=== PATIENT | female | born 1990 | race Caucasian/White ===

== ENCOUNTER 2018-02-21 09:21 | Observation (INO) | payer MEDICAID, SELFPAY ==
[2018-02-21 09:23] VITALS: BP 132/68; PULSE 90; RESP 16; TEMP 37.4; O2SAT 97
--- NOTE | 2018-02-21 09:46 | W.ED.GENAD ---
Discharge Plan Disposition Patient Disposition: [facility] INPATIENT Condition: Fair Discharge Details Chief Complaint: Abd Prob Clinical Impression: Enteritis Reason For Visit: ACUTE GASTROENTERITIS/AD PAIN/FEVER Admit Date/Time: 02/21/18 14:33 Admit Provider: Earnest Vela Attending Provider: Earnest Vela Primary Care Provider: Reshma Hauser ED Provider: Sae Kahn Medical Decision Making MDM Narrative Medical decision making narrative: 27-year-old female presents with abdominal pain, vomiting, which she states is intermittent vaginal spotting. She is afebrile, well-appearing, but in some distress with tenderness her abdomen. Differential diagnosis includes peritonitis, bowel obstruction, infection. On gynecologic exam she has mucus brown discharge, proximal vaginal canal erosions, left greater than right adnexal tenderness Patient had IV access established, peripheral laboratory testing, urinalysis, CT imaging. Vaginal sathish are negative for Lorena, Gardnerella, trichomonas. Patient has a white count of 9, unremarkable CBC, chemistries that were reassuring and a unremarkable lipase of 51. CT images reveal dilated thickened loops of bowel with mesenteric stranding. There is no pneumatosis or free air, the appendix appears normal. Consistent with a severe enteritis. In the emergency department the patient spiked a temperature to 38.1. Therefore, added blood cultures and lactic acid level. I did discuss the case with Dr. Wise in consultation. Most consistent with enteritis. Pt to be admitted to medicine service, Dr Vela. HPI - General Adult General Mode of arrival: ambulatory. Date/Time Provider Initiated Documentation: 02/21/18 09:33. Limitations to Documentation: no limitations. Information obtained by: patient. History of Present Illness 27 year old F presents to the emergency department with the chief complaint of Multiple complaints, described as moderate, Quality is described as aching, and is localized to the abdomen. Patient abdomen and distal. Patient started experiencing this day(s) and it has been intermittent. No relieving factors improve symptom(s), Eating worsens symptoms . Patient notes no other symptoms.. Patient did receive the following treatments prior to arrival, none HPI Narrative: Numerous complaints: This 27-year-old female who complains of abdominal pain. She states that she had heavy menstrual period for 5-6 days that finished 5 days ago. During that time she had numerous pads per day of menstrual flow. She said she had crampy lower abdominal pain associated with this. She now complains of the gradual onset of 4 days of mid upper abdominal pain that sharp, constant, worse with eating and radiates to the pelvis. Associated with nausea and vomiting. She has not had fever or chills. She states that she has otherwise been well. Related Data Home Medications Medication Instructions Recorded Confirmed Unknown [No Known Home Meds] 02/21/18 02/21/18 Allergies Allergy/AdvReac Type Severity Reaction Status Date / Time No Known Allergies Allergy Unverified 02/21/18 09:30 General Stated Complaint: Abd Prob KARON: 3 Review of Systems Review of Systems 8 systems reviewed and otherwise neg PFSH Social History Smoking/Tobacco Use Status: Current every day Exam Narrative Exam Narrative: GEN: awake, alert, oriented 3. Pleasant, well groomed, interactive. HEAD: Normocephalic, atraumatic ENT: Mucous membranes moist, oropharynx unremarkable, External ear exam unremarkable EYES: PERRL, EOMI NECK: Full ROM, no DANIEL, no menigismus CHEST/RESP: Nontender, clear to auscultation bilateral, no wheeze/rhonchi/rales CARDIOVASCULAR: RRR, no murmur, rub daniel. 2+ Rad pulse bilateral ABDOMEN: Soft, diffusely tender, most so with deep palpation, mild rebound present, no mass. +Bowel sounds. PATIENT CARE SPECIALIST: Patient has brown mucus discharge with erosions of the proximal vaginal vault on the left side. She is tender on bimanual exam left greater than right adnexa EXT: Full ROM, no edema, no rash Neuro: Grossly normal neurologic exam, conversant, interactive. Psych: Speech fluent, thoughts congruent, affect normal Course Vital Signs Temperature 37.4 C 02/21/18 09:23 Pulse 90 02/21/18 09:23 Respiratory Rate 16 02/21/18 09:23 Blood Pressure 132/68 02/21/18 09:23 Pulse Oximetry 97 02/21/18 09:23 Temperature 37.4 C 02/21/18 09:23 Pulse 90 02/21/18 09:23 Respiratory Rate 16 02/21/18 09:23 Blood Pressure 132/68 02/21/18 09:23 Pulse Oximetry 97 02/21/18 09:23
--- NOTE | 2018-02-21 09:50 | ED.GENADUL_ITS ---
Discharge Plan Disposition Patient Disposition: [facility] INPATIENT Condition: Fair Discharge Details Chief Complaint: Abd Prob Clinical Impression: Enteritis Reason For Visit: ACUTE GASTROENTERITIS/AD PAIN/FEVER Admit Date/Time: 02/21/18 14:33 Admit Provider: Earnest Vela Attending Provider: Earnest Vela Primary Care Provider: Reshma Hauser ED Provider: Sae Kahn Medical Decision Making MDM Narrative Medical decision making narrative: 27-year-old female presents with abdominal pain, vomiting, which she states is intermittent vaginal spotting. She is afebrile, well-appearing, but in some distress with tenderness her abdomen. Differential diagnosis includes peritonitis, bowel obstruction, infection. On gynecologic exam she has mucus brown discharge, proximal vaginal canal erosions, left greater than right adnexal tenderness Patient had IV access established, peripheral laboratory testing, urinalysis, CT imaging. Vaginal sathish are negative for Lorena, Gardnerella, trichomonas. Patient has a white count of 9, unremarkable CBC, chemistries that were reassuring and a unremarkable lipase of 51. CT images reveal dilated thickened loops of bowel with mesenteric stranding. There is no pneumatosis or free air, the appendix appears normal. Consistent with a severe enteritis. In the emergency department the patient spiked a temperature to 38.1. Therefore, added blood cultures and lactic acid level. I did discuss the case with Dr. Wise in consultation. Most consistent with enteritis. Pt to be admitted to medicine service, Dr Vela. HPI - General Adult General Mode of arrival: ambulatory . Date/Time Provider Initiated Documentation: 02/21/18 09:33 . Limitations to Documentation: no limitations . Information obtained by: patient . History of Present Illness 27 year old F presents to the emergency department with the chief complaint of Multiple complaints, described as moderate, Quality is described as aching, and is localized to the abdomen. Patient abdomen and distal. Patient started experiencing this day(s) and it has been intermittent. No relieving factors improve symptom(s), Eating worsens symptoms . Patient notes no other symptoms.. Patient did receive the following treatments prior to arrival, none HPI Narrative: Numerous complaints: This 27-year-old female who complains of abdominal pain. She states that she had heavy menstrual period for 5-6 days that finished 5 days ago. During that time she had numerous pads per day of menstrual flow. She said she had crampy lower abdominal pain associated with this. She now complains of the gradual onset of 4 days of mid upper abdominal pain that sharp, constant, worse with eating and radiates to the pelvis. Associated with nausea and vomiting. She has not had fever or chills. She states that she has otherwise been well. Related Data Home Medications Medication Instructions Recorded Confirmed Unknown [No Known Home Meds] 02/21/18 02/21/18 Allergies Allergy/AdvReac Type Severity Reaction Status Date / Time No Known Allergies Allergy Unverified 02/21/18 09:30 General Stated Complaint: Abd Prob KARON: 3 Review of Systems Review of Systems 8 systems reviewed and otherwise neg PFSH Social History Smoking/Tobacco Use Status: Current every day Exam Narrative Exam Narrative: GEN: awake, alert, oriented 3. Pleasant, well groomed, interactive. HEAD: Normocephalic, atraumatic ENT: Mucous membranes moist, oropharynx unremarkable, External ear exam unremarkable EYES: PERRL, EOMI NECK: Full ROM, no DANIEL, no menigismus CHEST/RESP: Nontender, clear to auscultation bilateral, no wheeze/rhonchi/rales CARDIOVASCULAR: RRR, no murmur, rub daniel. 2+ Rad pulse bilateral ABDOMEN: Soft, diffusely tender, most so with deep palpation, mild rebound present, no mass. +Bowel sounds. SIZING MACHINE TENDER: Patient has brown mucus discharge with erosions of the proximal vaginal vault on the left side. She is tender on bimanual exam left greater than right adnexa EXT: Full ROM, no edema, no rash Neuro: Grossly normal neurologic exam, conversant, interactive. Psych: Speech fluent, thoughts congruent, affect normal Course Vital Signs Temperature 37.4 C 02/21/18 09:23 Pulse 90 02/21/18 09:23 Respiratory Rate 16 02/21/18 09:23 Blood Pressure 132/68 02/21/18 09:23 Pulse Oximetry 97 02/21/18 09:23 Temperature 37.4 C 02/21/18 09:23 Pulse 90 02/21/18 09:23 Respiratory Rate 16 02/21/18 09:23 Blood Pressure 132/68 02/21/18 09:23 Pulse Oximetry 97 02/21/18 09:23
[2018-02-21] MEDS: Ondansetron 4 MG/2 ML VIAL IVP ×2 (10:05→22:05)
[2018-02-21 10:17] LABS: Abs Immature Grans 0.04 k/cumm (0.0-0.09); Absolute Basophil Count 0.01 k/cumm (0.0-0.2); Absolute Lymphocyte Count 1.68 k/cumm (1.2-3.4); Absolute Monocyte Count 0.93 k/cumm (0.11-0.7); Absolute Neutrophil Count 6.94 k/cumm (1.2-6.7); Basophils % 0.1; HCT 34.9 % (36.0-46.0); HGB 11.4 g/dL (12.0-15.5); Immature Grans % 0.4; Lymphocytes % 17.5; Mean Corp. HGB Concentration 32.7 g/dL (32.0-36.0); Mean Corpuscular Hemoglobin 25.4 pg (27.0-33.0); Mean Corpuscular Volume 77.7 fL (80-95); Monocytes % 9.7; Neutrophils % 72.3; Platelet Count 324 x1000/uL (130-400); RBC 4.49 m/cumm (4.00-5.20); RBC Distribution Width 14.3 % (11.7-14.6)
[2018-02-21 10:18] LABS: Bilirubin Small (Negative); Blood Moderate (Negative); Clarity Sl Cloudy; Glucose Negative (Negative); Ketones Trace mg/dL (Negative); Leukocyte Esterase Negative (Negative); Nitrite Negative (Negative); Specific Gravity 1.025 (1.005-1.025); pH 6.5 (5-8)
[2018-02-21] MEDS: Normal Saline 1,000 ML 1000 ML IV (10:18)
[2018-02-21 10:25] LABS: Bacteria Moderate HPF (Negative); C & S Indicated? No/Sq. Contamination; Casts Negative LPF (Negative); Crystals Negative HPF (Negative); Epithelial Cells Moderate HPF (Negative); Mucus Heavy (Negative); Other Cells Negative (Negative)
[2018-02-21 10:36] LABS: ALT 18 U/L (12-78); AST 10 U/L (15-37); Albumin 3.2 g/dL (3.4-5.0); Alkaline Phosphatase 67 U/L (46-116); Anion Gap 7.7 mmol/L (3-11); BUN 7 mg/dL (7-18); Bilirubin, Total 0.4 mg/dL (0.2-1.0); CO2 30.3 mmol/L (21.0-32.0); CREATININE 0.73 mg/dL (0.55-1.02); Calcium 8.5 mg/dL (8.5-10.1); Chloride 100 mmol/L (98-107); Glucose 102 mg/dL (70-100); Lipase 51 U/L (73-393); Potassium 3.7 mmol/L (3.5-5.1); Sodium 138 mmol/L (136-145); Total Protein 7.4 g/dL (6.4-8.2)
--- NOTE | 2018-02-21 12:43 | DI.CT_ITS ---
SYMPTOMS/DIAGNOSIS: ABDOMINAL PAIN CT OF THE ABDOMEN AND PELVIS: Comparison is made with October,. Images were performed from the lung bases through the ischial tuberosities after IV contrast. The patient received only a small amount of IV contrast due to IV failure. This limits evaluation of the bowel. The evaluation of the bowel is also limited due to lack of oral contrast. There is marked haziness of the mesentery. There is a small amount of fluid in the lower pelvis. There is bowel wall thickening and mild distention involving loops of bowel, mainly in the left side of the abdomen. More distal loops of small bowel, as well as colon, appear normal. The appendix appears normal. There is no discrete abscess. The uterus and ovaries are grossly normal. The bladder appears normal. The lung bases show mild respiratory motion and dependent changes. There is no free air. The liver, gallbladder, spleen, adrenals, pancreas and kidneys are unremarkable. IMPRESSION: Limited exam secondary to lack of adequate IV contrast. There are dilated loops of small bowel in the left side of the abdomen and haziness to the mesentery, which could indicate enteritis with peritonitis. There is no evidence of abscess or perforation.
[2018-02-21 12:50] VITALS: TEMP 38.1
[2018-02-21 14:06] LABS: Lactate-non-spesis 0.5 mmol/L (0.6-1.4)
[2018-02-21 16:16] VITALS: BP 132/68; PULSE 90; RESP 16; TEMP 38.1; O2SAT 97
[2018-02-21 16:20] LABS: *AMPHETAMINES SCREEN URINE Negative (Negative); *BARBITURATES SCREEN URINE Negative (Negative); *BENZODIAZEPINES SCREEN URINE Negative (Negative); Cannabinoids THC POSITIVE (Negative); Cocaine Screen,Urine POSITIVE (Negative); METHADONE URINE SCREEN POSITIVE (Negative); OPIATES URINE SCREEN Negative (Negative)
[2018-02-21 16:31] VITALS: BP 117/70; PULSE 67; RESP 18; TEMP 36.7; O2SAT 98
[2018-02-21 16:44] LABS: Tricyclic Antidepressants Negative (Negative)
[2018-02-21] MEDS: Normal Saline 1,000 ML 75 ML IV (16:44)
[2018-02-21] MEDS: Nicotine 14 MG/24 HR PATCH TD (16:50)
--- NOTE | 2018-02-21 18:54 | W.PM.HP.N ---
Date of service: 02/21/18 Time of Service: 18:55 Assessment and Plan (1) Gonorrhea: Current visit: Yes Status: Suspected Patient was treated for an acute gonorrhea infection October 2017. Patient states she has had the same partner for the last 16 months. She notes her partner was never treated for an acute gonorrhea infection. She notes she has had sexual intercourse with her partner since that time. Given the abnormal exam and her presentation with abdominal pain it seemed warranted to treat her empirically for an acute gonorrhea infection. It is not clear she has disseminated gonorrhea. Will give her ceftriaxone 1 g IV, azithromycin 1000 mg p.o. ?1. Strongly encouraged her to have her partner treated for acute gonorrhea prior to resuming sexual intercourse. (2) Abdominal pain: Current visit: Yes Status: Acute Acute abdominal pain could be secondary to the gonorrhea and or an acute gastroenteritis. She is mildly dehydrated. We will provide antiemetic medication and IV fluids overnight. Reassess in the a.m. (3) Depression: Current visit: Yes Status: Chronic Patient appears clinically stable. She is on no antidepressant medications at this time per (4) IV drug abuse: Current visit: Yes Status: Chronic Patient denies any current illicit drug use. Her urine drug screen from admission is positive for cocaine, THC, methadone. This would be inconsistent with what she is giving us for a history. This also makes it possible that some of her symptoms are from acute opiate withdrawal. We will continue to provide supportive care with antiemetics and IV fluids. (5) Discharge planning issues: Current visit: Yes Status: Acute Patient is admitted to observation status. She is a full code. History of Present Illness Chief Complaint: Abdominal pain/nausea/vomiting Narrative: This is a 27-year-old woman who has been having trouble with abdominal pain nausea and vomiting for the last 2-3 days. She notes an abnormal vaginal flow. She just finished her menses on 02/15/2018 In the emergency room she reported a significant vaginal discharge a pelvic exam revealed a brownish discharge and erosions around her cervix. A CT of the abdomen showed distended loops of bowel and fluid. Her labs were otherwise unremarkable. She was started on IV fluids and admitted to [facility] Review of Systems Review of Systems She is complaining of abdominal pain with nausea she has had some episodes of vomiting. Remainder review of systems as per [facility] Social History Smoking/Tobacco Use Status: Current every day Meds Home Medications Medication Instructions Recorded Confirmed Type Unknown [No Known Home Meds] 02/21/18 02/21/18 History Allergies Allergy/AdvReac Type Severity Reaction Status Date / Time No Known Allergies Allergy Unverified 02/21/18 09:30 Exam Const General: cooperative and disheveled Nutritional Appearance: average body habitus Orientation: alert, awake and oriented x3 Limitations: other limitations (She seemed to have difficulty attending to the task at hand. She kept referring to her phone and trying to talk to her boyfriend) Eyes General: appearance normal, both eyes and all related structures Pupils: PERRL Neck Neck: normal visual inspection Chest Chest: normal inspection of the chest Resp Effort & Inspection: normal respiratory effort Auscultation: clear to auscultation bilaterally Cardio Rate: regular rate Rhythm: regular rhythm Heart Sounds: S1 normal, S2 normal and no murmurs GI Palpation: no hepatosplenomegaly and tender (Diffusely tender with voluntary guarding. No focal area of tenderness.) Auscultation: normal bowel sounds General: deferred Skin General skin exam: no rashes or lesions noted (Multiple tattoos in various locations. No areas of acute infection detected) Neuro General: alert, awake, oriented x3 and no focal motor deficits Results Imaging Abdomen CT scan report/results: report reviewed (MPRESSION: Limited exam secondary to lack of adequate IV contrast. There are dilated loops of small bowel in the left side of the abdomen and haziness to the mesentery, which could indicate enteritis with peritonitis. There is no evidence of abscess or perforation. [id number]: Total DLP = 0.00 ) Labs : 02/21/18 09:45 02/21/18 09:45 Laboratory Results - last 24 hr 02/21/18 02/21/18 02/21/18 09:45 09:45 09:50 WBC 9.60 RBC 4.49 Hgb 11.4 L Hct 34.9 L MCV 77.7 L MCH 25.4 L MCHC 32.7 RDW 14.3 Plt Count 324 MPV 9.0 Immature Gran % 0.4 Neutrophils % 72.3 Lymphocytes % 17.5 Monocytes % 9.7 Eosinophils % 0.0 Basophils % 0.1 Absolute Neutrophils 6.94 H Absolute Lymphocytes 1.68 Absolute Monocytes 0.93 H Absolute Eosinophils 0.00 Absolute Basophils 0.01 Sodium 138 Potassium 3.7 Chloride 100 Carbon Dioxide 30.3 Anion Gap 7.7 BUN 7 Creatinine 0.73 Estimated GFR/1.73 m2 >= 60.00 Glucose 102 H Lactate Calcium 8.5 Total Bilirubin 0.4 AST 10 L ALT 18 Alkaline Phosphatase 67 Total Protein 7.4 Albumin 3.2 L Lipase 51 L Urine Color Yellow Urine Clarity Sl cloudy Urine pH 6.5 Ur Specific [place] 1.025 Urine Protein 30 H Urine Ketones Trace H Urine Blood Moderate H Urine Nitrite Negative Urine Bilirubin Small H Urine Urobilinogen 1.0 H Ur Leukocyte Esterase Negative Urine RBC 5-10 H Urine WBC 3-5 Ur Epithelial Cells Moderate Urine Crystals Negative Urine Bacteria Moderate Urine Casts Negative Urine Mucus Heavy Urine Other Negative Ur Culture Indicated? No/sq. contamination Urine Glucose Negative Urine Opiates Screen Urine Methadone Screen Ur Barbiturates Screen Ur Tricyclics Screen Ur Amphetamines Screen U Benzodiazepines Scrn Urine Cocaine Screen Ur THC Screen 02/21/18 02/21/18 14:00 14:32 WBC RBC Hgb Hct MCV MCH MCHC RDW Plt Count MPV Immature Gran % Neutrophils % Lymphocytes % Monocytes % Eosinophils % Basophils % Absolute Neutrophils Absolute Lymphocytes Absolute Monocytes Absolute Eosinophils Absolute Basophils Sodium Potassium Chloride Carbon Dioxide Anion Gap BUN Creatinine Estimated GFR/1.73 m2 Glucose Lactate 0.5 L Calcium Total Bilirubin AST ALT Alkaline Phosphatase Total Protein Albumin Lipase Urine Color Urine Clarity Urine pH Ur Specific [place] Urine Protein Urine Ketones Urine Blood Urine Nitrite Urine Bilirubin Urine Urobilinogen Ur Leukocyte Esterase Urine RBC Urine WBC Ur Epithelial Cells Urine Crystals Urine Bacteria Urine Casts Urine Mucus Urine Other Ur Culture Indicated? Urine Glucose Urine Opiates Screen Negative Urine Methadone Screen Positive Ur Barbiturates Screen Negative Ur Tricyclics Screen Negative Ur Amphetamines Screen Negative U Benzodiazepines Scrn Negative Urine Cocaine Screen Positive Ur THC Screen Positive CT Abd: IMPRESSION: Limited exam secondary to lack of adequate IV contrast. There are dilated loops of small bowel in the left side of the abdomen and haziness to the mesentery, which could indicate enteritis with peritonitis. There is no evidence of abscess or perforation. [id number]: Total DLP = 0.00 mGy-cm
[2018-02-21 19:21] VITALS: BP 111/65; PULSE 70; RESP 18; TEMP 37.8; O2SAT 97
[2018-02-21] MEDS: Azithromycin 250 MG TAB 1000 MG PO (22:45)
[2018-02-21] MEDS: Acetaminophen 325 MG TAB PO (22:45)
[2018-02-22 00:10] VITALS: BP 123/68; PULSE 80; RESP 17; TEMP 36.7; O2SAT 94
[2018-02-22] MEDS: Normal Saline 1,000 ML 75 ML IV (05:36)
[2018-02-22] MEDS: Acetaminophen 325 MG TAB PO ×2 (05:36→10:09)
[2018-02-22 06:06] VITALS: BP 101/61; PULSE 56; RESP 16; TEMP 35.3; O2SAT 96
[2018-02-22 07:24] LABS: Abs Immature Grans 0.02 k/cumm (0.0-0.09); Absolute Basophil Count 0.01 k/cumm (0.0-0.2); Absolute Eosinophil Count 0.04 k/cumm (0.0-0.7); Absolute Lymphocyte Count 1.91 k/cumm (1.2-3.4); Absolute Monocyte Count 0.79 k/cumm (0.11-0.7); Absolute Neutrophil Count 4.26 k/cumm (1.2-6.7); Basophils % 0.1; Eosinophils % 0.6; HCT 29.5 % (36.0-46.0); HGB 9.2 g/dL (12.0-15.5); Immature Grans % 0.3; Lymphocytes % 27.2; Mean Corp. HGB Concentration 31.2 g/dL (32.0-36.0); Mean Corpuscular Hemoglobin 24.9 pg (27.0-33.0); Mean Corpuscular Volume 79.9 fL (80-95); Mean Platelet Volume 8.9 fL (8.0-11.0); Monocytes % 11.2; Neutrophils % 60.6; Platelet Count 243 x1000/uL (130-400); RBC 3.69 m/cumm (4.00-5.20); RBC Distribution Width 14.6 % (11.7-14.6); White Blood Cell Count 7.03 k/cumm (4.4-10.8)
[2018-02-22 07:29] LABS: Anion Gap 8.2 mmol/L (3-11); BUN 7 mg/dL (7-18); CO2 27.8 mmol/L (21.0-32.0); CREATININE 0.67 mg/dL (0.55-1.02); Calcium 8.3 mg/dL (8.5-10.1); Chloride 103 mmol/L (98-107); Glucose 105 mg/dL (70-100); Potassium 3.6 mmol/L (3.5-5.1); Sodium 139 mmol/L (136-145)
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
[2018-02-22 07:34] VITALS: BP 98/62; PULSE 53; RESP 18; TEMP 36.1; O2SAT 98
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
[2018-02-22 09:10] VITALS: O2SAT 96
[2018-02-22] MEDS: Normal Saline Flush 10 ML SYR IVP (10:09)
[2018-02-22] MEDS: Ondansetron 4 MG/2 ML VIAL IVP (10:09)
[2018-02-22] MEDS: MetroNIDAZOLE 500 MG/100 ML BAG 100 MG IVPB (10:36)
--- NOTE | 2018-02-22 11:05 | W.PM.DS.N ---
Date of service: 02/22/18 Time of Service: 10:30 DS: Diagnosis Discharge Diagnosis (1) Gonorrhea: Status: Suspected (2) Abdominal pain: Status: Acute (3) Depression: Status: Chronic (4) IV drug abuse: Status: Chronic (5) Discharge planning issues: Status: Acute Discharge Plan Disposition Patient Disposition: HOME Condition: Fair Discharge Details Reason For Visit: ACUTE GASTROENTERITIS/AD PAIN/FEVER Admit Date/Time: 02/21/18 14:33 Admit Provider: Earnest Vela Attending Provider: Earnest Vela Primary Care Provider: [facility] Hospital Course: This is a 27-year-old female patient who presented to the emergency department with abdominal pain nausea and vomiting. Has a history of gonorrhea for which she was treated for but her partner was never treated. Workup in the emergency department did include a pelvic exam and pending STD testing. She was given ceftriaxone IV and oral Zithromax while awaiting culture reports. She was admitted to the medical surgical unit observation status for ongoing nausea. She received IV fluids and antiemetics overnight. She has remained afebrile with normal vital signs. She is tolerating some oral fluids but remains with a poor appetite. She does have some ongoing abdominal pelvic discomfort but improved. She has not had a bowel movement and reports that she is voiding without difficulty. She was previously on methadone but states that she has come off the program in September 2017, a urine drug test is positive for cocaine methadone and THC, she only admits to marijuana use. She will be started on doxycycline and Flagyl for 2 weeks to treat PID. He was advised to contact women's wellness for a follow-up appointment next week or to return to the emergency department sooner for new or worsening symptoms. Her prescriptions have been called to [facility] in [facility]. Home Meds and New Rx's Prescriptions: New doxycycline hyclate 100 mg capsule 100 mg PO BID Qty: 28 RF: 0 metronidazole [Flagyl] 500 mg tablet 500 mg PO QID Qty: 56 RF: 0 ondansetron [Zofran ODT] 4 mg tablet,disintegrating 4 mg PO QID PRN (Reason: nausea and vomiting) Qty: 10 RF: 0 Discharge Instructions Instructions: Gastroenteritis (DC) Additional Instructions: please take all medications as prescribed even if you feel better. push fluids to stay well hydrated, drinking at least 6-8 glasses of water daily to stay well hydrated. Call [facility] on Saturday morning for follow up appointment in 2-3 days, return sooner for new or worsening symptoms Stand Alone Forms: Nursing Discharge Form Referrals: Reshma Hauser [Primary Care Provider] - (Please call your PCP office on Saturday to schedule a follow up appointment for within one or two weeks. [phone]) Activity:: Activity as Tolerated Equipment/Supplies:: No Equipment Needed Diet:: clear liquids, advance as Discharge Orders Discharge Orders: Discharge Order (Routine); Ordered 02/22/18 Ordered By: Naila Alex Discharge Data Discharge Date/Time-TO BE ENTERED AT DEPARTURE: 02/22/18 13:25 Exam Const General: cooperative, no acute distress and disheveled Nutritional Appearance: average body habitus Orientation: alert, awake and oriented x3 Limitations: behavioral limitations HENMT Head: normal to inspection Teeth and gingiva: abnormal tooth or associated gingiva and poor dentition Resp Effort & Inspection: normal respiratory effort and able to speak in complete sentences Auscultation: clear to auscultation bilaterally Cardio Rate: regular rate Rhythm: regular rhythm GI Inspection: normal to inspection and distended Palpation: soft, not firm, no masses and tender Auscultation: normal bowel sounds Skin General skin exam: no rashes or lesions noted Neuro General: alert, awake and oriented x3 Cognition: normal cognition Speech: speech normal Motor: muscle tone normal throughout Extrem General: normal to inspection, full ROM and normal capillary refill DS: Data Vitals/I&O Vitals and I&O: Vital Signs Temp 36.1 C L 02/22/18 07:34 Pulse 53 L 02/22/18 07:34 Resp 18 02/22/18 07:34 BP 98/62 L 02/22/18 07:34 Pulse Ox 98 02/22/18 07:34 Intake & Output 02/21/18 02/21/18 02/22/18 11:59 23:59 11:59 Intake Total 1000 / 1000 240 / 240 1465 / 1465 Output Total 800 / 800 Balance 1000 / 1000 240 / 240 665 / 665 Weight 63.1 kg 63.1 kg Intake: IV 1000 / 1000 985 / 985 Oral 240 / 240 480 / 480 Output: Urine 800 / 800 Other: Urine Color Light Ximena Urine Appearance Cloudy Sediment Urine Odor Strong Labs on day of discharge: Labs from last 24 hours 02/22/18 02/22/18 02/21/18 06:40 06:40 14:32 WBC 7.03 RBC 3.69 L Hgb 9.2 L D Hct 29.5 L MCV 79.9 L MCH 24.9 L MCHC 31.2 L RDW 14.6 Plt Count 243 MPV 8.9 Immature Gran % 0.3 Neutrophils % 60.6 Lymphocytes % 27.2 Monocytes % 11.2 Eosinophils % 0.6 Basophils % 0.1 Absolute Neutrophils 4.26 Absolute Lymphocytes 1.91 Absolute Monocytes 0.79 H Absolute Eosinophils 0.04 Absolute Basophils 0.01 Sodium 139 Potassium 3.6 Chloride 103 Carbon Dioxide 27.8 Anion Gap 8.2 BUN 7 Creatinine 0.67 Estimated GFR/1.73 m2 >= 60.00 Glucose 105 H Lactate Calcium 8.3 L Urine Opiates Screen Negative Urine Methadone Screen Positive Ur Barbiturates Screen Negative Ur Tricyclics Screen Negative Ur Amphetamines Screen Negative U Benzodiazepines Scrn Negative Urine Cocaine Screen Positive Ur THC Screen Positive 02/21/18 14:00 WBC RBC Hgb Hct MCV MCH MCHC RDW Plt Count MPV Immature Gran % Neutrophils % Lymphocytes % Monocytes % Eosinophils % Basophils % Absolute Neutrophils Absolute Lymphocytes Absolute Monocytes Absolute Eosinophils Absolute Basophils Sodium Potassium Chloride Carbon Dioxide Anion Gap BUN Creatinine Estimated GFR/1.73 m2 Glucose Lactate 0.5 L Calcium Urine Opiates Screen Urine Methadone Screen Ur Barbiturates Screen Ur Tricyclics Screen Ur Amphetamines Screen U Benzodiazepines Scrn Urine Cocaine Screen Ur THC Screen
[2018-02-22 11:07] VITALS: BP 110/71; PULSE 63; RESP 17; TEMP 36.8; O2SAT 98
[2018-02-24 14:32] LABS: Specimen Description URINE
[2018-02-25 13:37] LABS: Chlamydia Result Positive
== END 2018-02-22 13:25 | disposition home or self-care (01) ==
LOC: ER 15:00 → MS 16:30
PROVIDERS: Admitting Provider Family Medicine; Emergency Provider Emergency Medicine; PCP Nurse Practitioner; Visit Provider Family Medicine
DX: A54.9 Gonococcal infection, unspecified (principal); A56.02 Chlamydial vulvovaginitis; R11.2 Nausea with vomiting, unspecified; R10.9 Unspecified abdominal pain; Z20.2 Contact with and (suspected) exposure to infections with a predominantly sexual mode of transmission; F32.9 Major depressive disorder, single episode, unspecified; F19.10 Other psychoactive substance abuse, uncomplicated
CPT/HCPCS: 36410; 36415; 80048; 80053; 80307; 81025; 83690; 87040; 87491; 96361; 96374; 99217; 99222; 99285; 74176; 81003; 81015; 83605; 85025; 87480; 87510; 87660; 99219; 99284; G0378; J0696; J2405